=== PATIENT | female | born 1990 | race American Indian/Alaskan Native ===

== ENCOUNTER 2021-02-12 20:27 | Emergency (ER) | payer SELFPAY ==
--- NOTE | 2021-02-12 21:28 | EDM.PDOC ---
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 Reports she is approximately 9 days late for her period. She checked a test last week it came out positive. Yesterday, she developed vaginal spotting. Today the bleeding has increased to what she would describe as light. She likens it to the bleeding that would be at the end of her period. She is having no cramping or pelvic pain. 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 She is unsure of her blood type. - Related Data Allergies Allergy/AdvReac Type Severity Reaction Status Date / Time No Known Allergies Allergy Verified 02/12/21 20:59 Home Meds: Home Meds . 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 Denies: Nausea, Vomiting : Reports: Irregular Menses Musculoskeletal: Reports: No Symptoms Skin: Reports: No Symptoms Neurological: Reports: No Symptoms Psychiatric: Reports: No Symptoms Hematologic/Lymphatic: Reports: No Symptoms Immunologic: Reports: No Symptoms ED EXAM - Physical Exam Exam: See Below Exam Limited By: No Limitations General Appearance: Alert, WD/WN, No Apparent Distress Respiratory/Chest: No Respiratory Distress, Lungs Clear, Normal Breath Sounds, No Accessory Muscle Use, Chest Non-Tender Cardiovascular: Normal Peripheral Pulses, Regular Rate, Rhythm, No Edema, No Gallop, No JVD, No Murmur, No Rub GI/Abdominal Exam: Normal Bowel Sounds, Soft, Non-Tender, No Organomegaly, No Distention, No Abnormal Bruit, No Mass, Pelvis Stable Neurological: Alert, Oriented, CN II-XII Intact, Normal Cognition, Normal Gait, Normal Reflexes, No Motor/Sensory Deficits Psychiatric: Normal Affect, Normal Mood Skin Exam: Warm, Dry, Intact, Normal Color, No Rash Course - Vital Signs Last Recorded V/S: Last Vital Signs Temp 98.7 F 02/12/21 21:00 Pulse 89 02/12/21 21:00 Resp 14 02/12/21 21:00 BP 133/86 02/12/21 21:00 Pulse Ox 97 02/12/21 21:00 - Orders/Labs/Meds Orders: Active Orders 24 hr Category Date Time Status PATIENT RETYPE [BBK] Routine Lab 02/12/21 22:20 Ordered Labs: Laboratory Tests 02/12/21 02/12/21 02/12/21 Range/Units 21:25 21:25 21:25 WBC 9.39 (3.98-10.04) K/mm3 RBC 4.51 (3.98-5.22) M/mm3 Hgb 12.4 (11.2-15.7) gm/dl Hct 38.9 (34.1-44.9) % MCV 86.3 (79.4-94.8) fl MCH 27.5 (25.6-32.2) pg MCHC 31.9 L (32.2-35.5) g/dl RDW Std Deviation 44.0 (36.4-46.3) fL Plt Count 269 (182-369) K/mm3 MPV 8.7 L (9.4-12.3) fl Neut % (Auto) 55.8 (34.0-71.1) % Lymph % (Auto) 35.1 (19.3-51.7) % Taylor % (Auto) 6.9 (4.7-12.5) % Eos % (Auto) 1.8 (0.7-5.8) Baso % (Auto) 0.2 (0.1-1.2) % Neut # (Auto) 5.23 (1.56-6.13) K/mm3 Lymph # (Auto) 3.30 (1.18-3.74) K/mm3 Taylor # (Auto) 0.65 H (0.24-0.36) K/mm3 Eos # (Auto) 0.17 (0.04-0.36) K/mm3 Baso # (Auto) 0.02 (0.01-0.08) K/mm3 Sodium 140 (136-145) mEq/L Potassium 3.4 L (3.5-5.1) mEq/L Chloride 105 (98-107) mEq/L Carbon Dioxide 27 (21-32) mEq/L Anion Gap 11.4 (5-15) BUN 12 (7-18) mg/dL Creatinine 0.9 (0.55-1.02) mg/dL Est Cr Clr Drug Dosing 92.20 mL/min Estimated GFR (MDRD) > 60 (>60) mL/min BUN/Creatinine Ratio 13.3 L (14-18) Glucose 115 H (70-99) mg/dL Calcium 8.6 (8.5-10.1) mg/dL Total Bilirubin 0.4 (0.2-1.0) mg/dL AST 17 (15-37) U/L ALT 25 (14-59) U/L Alkaline Phosphatase 52 (46-116) U/L Total Protein 6.9 (6.4-8.2) g/dl Albumin 3.7 (3.4-5.0) g/dl Globulin 3.2 gm/dL Albumin/Globulin Ratio 1.2 (1-2) HCG, Quant 5.0 mIU/mL Blood Type AB POSITIVE - Re-Assessments/Exams Free Text/Narrative Re-Assessment/Exam: 02/12/21 22:28 Hematology is unremarkable. Hemoglobin is normal at 12.4. hCG minimally elevated at 5.0. Patient's blood type is AB+, so no RhoGam is needed. Given her last menstrual period, her gestational age should be at approximately 6 weeks. Discussed with patient that given her low HCG, this is likely not a viable . I would recommend she follow-up with her primary care provider tomorrow to discuss this evening's occurrences and to have her hCGs trended. Discussed return precautions. Discharge instructions as documented. Departure - Departure Time of Disposition: 22:29 Disposition: Home, Self-Care 01 Condition: Good Clinical Impression: Threatened - Discharge Information *PRESCRIPTION DRUG MONITORING PROGRAM REVIEWED*: No *COPY OF PRESCRIPTION DRUG MONITORING REPORT IN PATIENT SAMRA: No Instructions: Threatened Miscarriage Referrals: Erum Dos Santos NP [Primary Care Provider] - Forms: ED Department Discharge Additional Instructions: You were seen in the emergency department today for vaginal bleeding after having a positive home test. Blood work was completed. Your hCG level which is your hormone, was only very minimally elevated at 5.0. Given your last menstrual period, we would expect this to be much higher. As we discussed, this is likely not a viable . Recommend following up with your primary care provider to discuss this evening's occurrences and to have your hCG levels monitored. Your blood type was checked and found to be AB+. If you should experience worsening symptoms, such as significant pain or bleeding to or you are saturating a pad an hour for 2 or more hours, please return to the emergency department for reevaluation. Sepsis Event Note (ED) - Evaluation Sepsis Screening Result: No Definite Risk - Focused Exam Vital Signs: Vital Signs Temp Pulse Resp BP Pulse Ox 02/12/21 21:00 98.7 F 89 14 133/86 97 - My Orders Last 24 Hours: My Active Orders 02/12/21 22:20 PATIENT RETYPE [BBK] Routine - Assessment/Plan Last 24 Hours: My Active Orders 02/12/21 22:20 PATIENT RETYPE [BBK] Routine
== END 2021-02-12 22:38 | disposition home or self-care (01) ==
LOC: JD.ED 20:27
DX: O20.0 Threatened abortion (principal); Z3A.01 Less than 8 weeks gestation of pregnancy
CPT/HCPCS: 36415; 80053; 84702; 85025; 86900; 86901; 99284

== ENCOUNTER 2023-06-02 08:37 | Inpatient (IN) | payer BC ==
[~2023-06-02 08:37] MED LIST: Bupivacaine 0.5% 10 ML SDV ONE; Lidocaine 1% 10 ML MDV ONE; Phenylephrine 1% 10 MG/ML SDV ONE
[2023-06-02] MEDS ORDERED: Ampicillin 2 GM in Sodium Chloride 0.9% 100 ML IV ONE ×2 (10:04→23:00)
[2023-06-02] MEDS ORDERED: Acetaminophen 325 MG Tab PO PRN (10:04)
[2023-06-02] MEDS ORDERED: Nalbuphine HCl 10 MG/ 1ML Amp IVPUSH PRN (10:04)
[2023-06-02] MEDS ORDERED: Sodium Chloride 0.9% 10 ML Syringe FLUSH PRN ×2 (10:04→16:02)
[2023-06-02] MEDS ORDERED: Lidocaine 1% 50 ML MDV INJECT PRN (10:04)
[2023-06-02] MEDS ORDERED: Oxytocin/Lactated Ringers 30 UNIT/500 ML BAG IV SCH ×2 (10:15→19:14)
[2023-06-02 10:27] LABS: BASOPHILS PERCENT AUTO 0.3 % (0.0-1.0); EOSINOPHILS PERCENT AUTO 0.3 % (0.0-6.0); HEMOGLOBIN 10.6 gm/dl (12.0-16.0); IMMATURE GRAN ABSOLUTE AUTO 0.09 K/mm3 (0.00-0.05); IMMATURE GRAN PERCENT AUTO 0.6 % (0.0-0.4); LYMPHOCYTES ABSOLUTE AUTO 2.2 K/mm3 (1.0-4.8); MEAN CORPUSCULAR HEMOGLOBIN 26.4 pg (28.0-32.0); MEAN CORPUSCULAR HGB CONC 32.1 g/dl (32.0-36.0); MEAN CORPUSCULAR VOLUME 82.1 fl (83.0-99.0); MEAN PLATELET VOLUME 8.6 fl (9.4-12.3); MONOCYTES ABSOLUTE AUTO 0.7 K/mm3 (0.0-0.8); MONOCYTES PERCENT AUTO 5.1 % (0.0-8.0); NEUTROPHILS ABSOLUTE AUTO 11.4 K/mm3 (1.8-7.7); NEUTROPHILS PERCENT AUTO 78.7 % (41.0-71.0); PLATELET COUNT,PLT 209 K/mm3 (150-400); RED BLOOD CELL COUNT 4.02 M/mm3 (4.10-5.30); WHITE BLOOD CELL COUNT,WBC 14.42 K/mm3 (3.9-11.3)
[2023-06-02 10:43] LABS: A/G RATIO 0.7 (1-2); ALBUMIN 2.7 g/dl (3.4-5.0); ANION GAP 13.9 (5-15); BILIRUBIN TOTAL 0.5 mg/dL (0.2-1.0); BUN/CREATININE RATIO 8.3 (14-18); CALCIUM 8.6 mg/dL (8.5-10.1); CREATININE 0.6 mg/dL (0.55-1.02); EST CRCL DRUG DOSING (CG) 135.79 mL/min; POTASSIUM,K 3.9 mEq/L (3.5-5.1); PROTEIN TOTAL,TP 6.6 g/dl (6.4-8.2)
[2023-06-02 12:19] LABS: CREATININE,URINE RAND 115.5 mg/dL (30.0-125.0); PROTEIN CREATININE RATIO,URINE 358.4 mg/g (0-149); PROTEIN,URINE RANDOM 41.4 mg/dL (0.0-11.8)
[2023-06-02] MEDS ORDERED: Ondansetron 4 MG/2 ML SDV IVPUSH PRN ×2 (12:32→17:27)
[2023-06-02] MEDS: Lactated Ringers 1,000 ML IV SCH ×3 (12:44→16:26)
[2023-06-02] MEDS ORDERED: ePHEDrine 50 MG/ML SDV IVPUSH PRN ×2 (13:50→19:14)
[2023-06-02] MEDS ORDERED: Bupivacaine/fentaNYL/NS 100 ML Bag EPIDUR PRN (13:50)
[2023-06-02] MEDS ORDERED: fentaNYL 100 MCG/2 ML SDV EPIDUR PRN (13:50)
[2023-06-02] MEDS ORDERED: diphenhydrAMINE 50 MG/ML SDV IVPUSH PRN ×3 (13:50→19:14)
[2023-06-02] MEDS ORDERED: Ampicillin 1 GM in Sodium Chloride 0.9% 100 ML IV SCH (14:00)
[2023-06-02] MEDS ORDERED: Ampicillin 2 GM in Sodium Chloride 0.9% 100 ML IV SCH (15:00)
[2023-06-02] MEDS ORDERED: fentaNYL 100 MCG/2 ML SDV ONE (15:20)
[2023-06-02] MEDS ORDERED: Morphine PF 10 MG/10 ML SDV ONE (15:20)
[2023-06-02] MEDS ORDERED: ceFAZolin 2 GM Vial ONE (15:24)
[2023-06-02] MEDS ORDERED: Ondansetron 4 MG/2 ML SDV ONE (15:44)
[2023-06-02] MEDS ORDERED: Lactated Ringers 1,000 ML ONE ×2 (15:47→15:52)
[2023-06-02] MEDS ORDERED: Oxytocin 10 Units/1 ML SDV ONE ×2 (15:49→16:03)
[2023-06-02] MEDS ORDERED: ceFAZolin 2 GM in Sodium Chloride 0.9% 50 ML IV ONE (16:02)
[2023-06-02] MEDS ORDERED: Metoclopramide 10 MG/2 ML SDV IVPUSH ONE (16:02)
[2023-06-02] MEDS ORDERED: Azithromycin 500 MG in Sodium Chloride 0.9% 250 ML IV ONE (16:02)
[2023-06-02] MEDS ORDERED: Citric Acid/Sodium Citrate Solution 30 ML Cup PO ONE (16:02)
[2023-06-02] MEDS ORDERED: metroNIDAZOLE/Normal Saline 500 MG in Premix Bag 1 BAG IV ONE (16:02)
[2023-06-02] MEDS ORDERED: Tranexamic Acid 1,000 MG/10 ML Vial ONE (16:11)
[2023-06-02] MEDS ORDERED: Lactated Ringers 1,000 ML IV SCH (16:15)
[2023-06-02] MEDS ORDERED: Bupivacaine 0.5% 10 ML SDV ONE (16:21)
[2023-06-02] MEDS ORDERED: Ketorolac 30 MG/ML SDV ONE (16:25)
[2023-06-02] MEDS ORDERED: fentaNYL 100 MCG/2 ML SDV IVPUSH PRN (17:27)
[2023-06-02] MEDS ORDERED: Measles, Mumps & Rubella Vaccine 0.5 ML SDV SUBCUT ONE (19:14)
[2023-06-02] MEDS ORDERED: Naloxone 0.4 MG/ML SDV IVPUSH PRN (19:14)
[2023-06-02] MEDS ORDERED: Magnesium Hydroxide 400 MG/5 ML Susp 30 ML Cup PO PRN (19:14)
[2023-06-02] MEDS ORDERED: Dextrose 5%-Lactated Ringers 1,000 ML IV SCH (19:14)
[2023-06-02] MEDS ORDERED: Acetaminophen/oxyCODONE 325-5 MG Tab PO PRN (19:14)
[2023-06-02 20:02] LABS: A/G RATIO 0.6 (1-2); ALBUMIN 2.1 g/dl (3.4-5.0); ANION GAP 13.5 (5-15); BILIRUBIN TOTAL 0.9 mg/dL (0.2-1.0); CALCIUM 7.8 mg/dL (8.5-10.1); CREATININE 0.7 mg/dL (0.55-1.02); EST CRCL DRUG DOSING (CG) 116.39 mL/min; POTASSIUM,K 3.5 mEq/L (3.5-5.1); PROTEIN TOTAL,TP 5.4 g/dl (6.4-8.2)
[2023-06-02 20:04] LABS: LACTIC ACID 1.6 mmol/L (0.4-2.0)
[2023-06-02] MEDS ORDERED: Sodium Chloride 0.9% 10 ML Syringe FLUSH SCH ×2 (21:00)
[2023-06-02] MEDS: Simethicone 80 MG Tab.Chew PO SCH (22:00)
[2023-06-02] MEDS: Docusate Sodium 100 MG Cap PO SCH (22:00)
[2023-06-02] MEDS: Ketorolac 30 MG/ML SDV IVPUSH SCH (22:48)
[2023-06-02] MEDS ORDERED: Ketorolac 30 MG/ML SDV IVPUSH SCH (23:30)
[2023-06-03] MEDS ORDERED: metroNIDAZOLE/Normal Saline 500 MG in Premix Bag 1 BAG IV ONE (01:00)
[2023-06-03] MEDS: Ketorolac 30 MG/ML SDV IVPUSH SCH ×2 (04:11→10:28)
[2023-06-03 06:08] LABS: BASOPHILS PERCENT AUTO 0.1 % (0.0-1.0); EOSINOPHILS PERCENT AUTO 0.1 % (0.0-6.0); HEMATOCRIT 22.3 % (37.0-47.0); IMMATURE GRAN ABSOLUTE AUTO 0.18 K/mm3 (0.00-0.05); LYMPHOCYTES ABSOLUTE AUTO 1.6 K/mm3 (1.0-4.8); LYMPHOCYTES PERCENT AUTO 8.7 % (24.0-44.0); MEAN CORPUSCULAR HEMOGLOBIN 26.3 pg (28.0-32.0); MEAN CORPUSCULAR HGB CONC 31.8 g/dl (32.0-36.0); MEAN CORPUSCULAR VOLUME 82.6 fl (83.0-99.0); MONOCYTES ABSOLUTE AUTO 1.3 K/mm3 (0.0-0.8); MONOCYTES PERCENT AUTO 6.9 % (0.0-8.0); NEUTROPHILS ABSOLUTE AUTO 15.8 K/mm3 (1.8-7.7); NEUTROPHILS PERCENT AUTO 83.2 % (41.0-71.0); PLATELET COUNT,PLT 164 K/mm3 (150-400); WHITE BLOOD CELL COUNT,WBC 18.91 K/mm3 (3.9-11.3)
[2023-06-03 06:13] LABS: HEMOGLOBIN 7.1 gm/dl (12.0-16.0)
[2023-06-03] MEDS: Docusate Sodium 100 MG Cap PO SCH (10:29)
[2023-06-03] MEDS: Prenatal Multivitamin with Calcium/Folic Acid/Iron Tab PO SCH (10:29)
[2023-06-03] MEDS: Simethicone 80 MG Tab.Chew PO SCH ×2 (10:29→16:16)
[2023-06-03] MEDS: Ibuprofen 600 MG Tab PO PRN (16:15)
[2023-06-03] MEDS ORDERED: Ibuprofen 600 MG Tab PO PRN (17:30)
[2023-06-04] MEDS: Ibuprofen 600 MG Tab PO PRN ×3 (04:39→20:17)
[2023-06-04] MEDS: Simethicone 80 MG Tab.Chew PO SCH ×4 (04:40→22:47)
[2023-06-04] MEDS: Prenatal Multivitamin with Calcium/Folic Acid/Iron Tab PO SCH (08:07)
[2023-06-04] MEDS: Acetaminophen/oxyCODONE 325-5 MG Tab PO PRN (20:14)
[2023-06-04] MEDS: Docusate Sodium 100 MG Cap PO SCH ×2 (20:17→22:47)
[2023-06-05] MEDS: Ibuprofen 600 MG Tab PO PRN ×3 (04:03→18:54)
[2023-06-05] MEDS: Simethicone 80 MG Tab.Chew PO SCH ×5 (11:51→18:54)
[2023-06-05] MEDS: Docusate Sodium 100 MG Cap PO SCH ×2 (11:52→18:54)
[2023-06-05] MEDS: Prenatal Multivitamin with Calcium/Folic Acid/Iron Tab PO SCH (11:52)
[2023-06-05] MEDS ORDERED: Ferrous Sulfate 324 MG Tab.EC PO SCH (17:00)
[2023-06-05] MEDS: Acetaminophen/oxyCODONE 325-5 MG Tab PO PRN (18:55)
== END 2023-06-05 19:00 | disposition home or self-care (01) | DRG 540 ==
LOC: JD.OBCHECK 08:37 → JD.OB 08:43 → JD.OBCHECK 10:04 → OBSVTOIN 10:04 → JD.OB 10:04
PROVIDERS: ADMIT Obstetrics & Gynecology; ATTEND Obstetrics & Gynecology
PROC: 3E0R3BZ Introduction of Anesthetic Agent into Spinal Canal, Percutaneous Approach (ICD-10-PCS; 2023-06-02)
PROC: 00HU33Z Insertion of Infusion Device into Spinal Canal, Percutaneous Approach (ICD-10-PCS; 2023-06-02)
PROC: 3E0234Z Introduction of Serum, Toxoid and Vaccine into Muscle, Percutaneous Approach (ICD-10-PCS; 2023-06-02)
PROC: 10D00Z1 Extraction of Products of Conception, Low, Open Approach (ICD-10-PCS; principal; 2023-06-02 16:30)
DX: O42.02 Full-term premature rupture of membranes, onset of labor within 24 hours of rupture (principal); Z3A.39 39 weeks gestation of pregnancy; O99.824 Streptococcus B carrier state complicating childbirth; D62 Acute posthemorrhagic anemia; O24.425 Gestational diabetes mellitus in childbirth, controlled by oral hypoglycemic drugs; O99.214 Obesity complicating childbirth; O76 Abnormality in fetal heart rate and rhythm complicating labor and delivery; O41.1230 Chorioamnionitis, third trimester, not applicable or unspecified; O99.03 Anemia complicating the puerperium; Z37.0 Single live birth; Z28.39 Other underimmunization status; Z23 Encounter for immunization
CPT/HCPCS: 36415; 51702; 59025; 80053; 82570; 82947; 83605; 83615; 84112; 84156; 85025; 86592; 86850; 86900; 86901; 87040; 90707; A9270-GY; J0290; J0456; J0665; J0690; J1580; J1836; J1885; J2274; J2371; J2405; J2590; J2765; J3010; J3490; J7050; J7120; J7999